=== PATIENT | male | born 1945 | race Native Hawaiian/Other Pacific Islander ===

== ENCOUNTER 2019-07-22 01:10 | Emergency (ER) | payer OTHER ==
[~2019-07-22] VITALS: Ht 188 cm; Wt 118.1 kg
[2019-07-22 01:44] LABS: PLATELET COUNT 263 K/uL (142-355)
[2019-07-22 01:51] LABS: POTASSIUM 4.4 mmol/L (3.6-5.2)
[2019-07-22 03:20] VITALS: BP 129/52; TEMP 97.2
[2019-07-22] MEDS ORDERED: ASPIR-8181 MG PO (04:07)
[2019-07-22] MEDS ORDERED: LIPITOR40 MG PO (04:08)
[2019-07-22] MEDS ORDERED: FERROUS SULF325 M1 PO (04:08)
[2019-07-22] MEDS ORDERED: METF500T PO (04:09)
[2019-07-22] MEDS ORDERED: HALO5TAB10 PO (04:09)
[2019-07-22] MEDS ORDERED: HYDRALAZINE25 MG PO (04:10)
[2019-07-22] MEDS ORDERED: LISI20TA11 PO (04:11)
[2019-07-22] MEDS ORDERED: ISOS30TA17 PO (04:11)
[2019-07-22] MEDS ORDERED: ZYPREXA ZYDI20 MG PO (04:12)
[2019-07-22] MEDS ORDERED: AMLODIPINE BESYLATE PO (04:12)
[2019-07-22] MEDS ORDERED: SERT100T PO (04:13)
[2019-07-22] MEDS ORDERED: VITAMIN B-121000 MC2 PO (04:13)
[2019-07-22] MEDS ORDERED: PHEN125S PO (04:14)
[2019-07-22] MEDS ORDERED: TAMIFLU75 MG PO (04:16)
[2019-07-22] MEDS ORDERED: HALOPERIDOL2 MG PO (04:17)
== END 2019-07-22 03:20 | disposition other institution (70) ==
LOC: ED 01:10
PROVIDERS: Emergency Medicine
DX: F03.91 Unspecified dementia, unspecified severity, with behavioral disturbance (principal); D64.89 Other specified anemias; Z04.6 Encounter for general psychiatric examination, requested by authority
CPT/HCPCS: 80053; 82272; 85027; 93005; 99283; 99285